=== PATIENT | male | born 1965 | race African-American/Black ===

== ENCOUNTER 2017-06-10 08:33 | Inpatient (IN) | payer OTHER ==
[~2017-06-10] VITALS: Ht 185.4 cm; Wt 96.2 kg
[2017-06-10] VITALS (13 sets, daily range): BP systolic 135–169; BP diastolic 89–113
[~2017-06-10 08:33] MED LIST: Dexamethasone 20mg/5ml IVP ONE; ceFAZolin sod 1 GM in NS 55 ML IVPB ONE
[2017-06-10] MEDS ORDERED: OXYCONTIN10 MG ORAL (09:23)
[2017-06-10] MEDS ORDERED: LR 1000ml 1,000 ML IVLG SCH (09:26)
[2017-06-10] MEDS ORDERED: Midazolam 2mg/2ml Inj IVP PRN (09:30)
[2017-06-10] MEDS ORDERED: Acetaminophen (Non formulary) 100 ML IV ONE (09:30)
[2017-06-10] MEDS ORDERED: Ketorolac 30mg Inj IV PRN ×3 (09:30→09:45)
[2017-06-10] MEDS ORDERED: Atropine Inj 1mg/10ml Syr IV PRN (09:30)
[2017-06-10] MEDS ORDERED: Metoclopramide 10mg/2ml Inj IVP PRN (09:30)
[2017-06-10] MEDS ORDERED: DiphenhydrAMINE 50mg/ml Inj IVP PRN (09:30)
[2017-06-10] MEDS ORDERED: Labetalol 5mg/ml 20ml vial IV PRN (09:30)
[2017-06-10] MEDS ORDERED: LORazepam Inj 2mg/ml 1ml IV PRN (09:30)
[2017-06-10] MEDS ORDERED: Norco 7.5mg/325mg tab ORAL PRN (09:30)
[2017-06-10] MEDS ORDERED: oxyCODONE HCL/Acetaminophen 5/325mg ORAL PRN (09:30)
[2017-06-10] MEDS ORDERED: Norco 5mg/325mg tab ORAL PRN (09:30)
[2017-06-10] MEDS ORDERED: fentaNYL 100 mcg/2 mL IV PRN (09:30)
[2017-06-10] MEDS ORDERED: OXYCODONE HCL20 M1 ORAL (09:31)
[2017-06-10] MEDS ORDERED: FUROSEMIDE40 MG ORAL (09:31)
[2017-06-10] MEDS ORDERED: LISINOPRIL30 MG ORAL (09:31)
--- NOTE | 2017-06-10 09:43 | Pre-Procedure Note/Attestation ---
Pre-Procedure Note/Attestation Complete Prior to Procedure Planned Procedure: not applicable Procedure Narrative: acdf c5-6 c6-7 pLATE c5-6-7 Indications for Procedure Pre-Operative Diagnosis: POST TRAUMA DISCOGENIC NECK PAIN C5-6 C6-7 Attestation I attest that I discussed the nature of the procedure; its benefits; risks and complications; and alternatives (and the risks and benefits of such alternatives ), prior to the procedure, with the patient (or the patient's legal ict sales representative). I attest that, if there was a reasonable possibility of needing a blood transfusion, the patient (or the patient's legal ict sales representative) was given the [place] Department [employer] standardized written summary, pursuant to the [place] Blood Safety Act ([place] Health and Safety Code # 1645, as amended). I attest that I re-evaluated the patient just prior to the surgery and that there has been no change in the patient's H&P, except as documented below: JOÃO CASH Jun 10, 2017 09:43
[2017-06-10] MEDS ORDERED: Glycopyrrolate 0.2mg/ml 1ml Vial ONE (10:00)
[2017-06-10] MEDS ORDERED: Lidocaine 1% Plain 30 ml INJ ONE (10:00)
[2017-06-10] MEDS ORDERED: fentaNYL 100 mcg/2 mL IV ONE (10:00)
[2017-06-10] MEDS ORDERED: Sterile Water Irrig 1000ml IRRIG ONE (10:00)
[2017-06-10] MEDS ORDERED: Propofol 1,000mg/ 100ml btl IV ONE (10:00)
[2017-06-10] MEDS ORDERED: Chloraseptic Spray 20mL Bottle ORAL PRN (10:00)
[2017-06-10] MEDS ORDERED: LR 1000ml ONE (10:00)
[2017-06-10] MEDS ORDERED: Lidocaine 1% MPF 10mg/ml 5ml ONE (10:00)
[2017-06-10] MEDS ORDERED: Neostigmine 1mg/ml 10ml Inj ONE (10:00)
[2017-06-10] MEDS ORDERED: Morphine Sulfate 4mg/ml Inj IM PRN (10:00)
[2017-06-10] MEDS ORDERED: NS Irrig 1000ml ONE (10:00)
[2017-06-10] MEDS ORDERED: Labetalol 5mg/ml 20ml vial IV ONE (10:00)
[2017-06-10] MEDS ORDERED: Zemuron 50mg/5ml Inj IV ONE (10:00)
[2017-06-10] MEDS ORDERED: Thrombin 5000 units TOPIC ONE (10:06)
[2017-06-10] MEDS ORDERED: Vancomycin 1gm inj IVPB ONE (10:07)
[2017-06-10] MEDS ORDERED: Bacitracin 50000 Units Vial ONE (10:07)
--- NOTE | 2017-06-10 10:09 | Anethesia Preoperative Eval ---
Anesthesia Pre-op PMH/ROS General Date of Evaluation: Jun 10, 2017 Time of Evaluation: 10:14 Anesthesiologist: Penelope ASA Score: ASA 3 Mallampati Score Class I : Soft palate, uvula, fauces, pillars visible Class II: Soft palate, uvula, fauces visible Class III: Soft palate, base of uvula visible Class IV: Only hard plate visible Mallampati Classification: Class II Surgeon: Jessee Diagnosis: Neck Pain Surgical Procedure: ACDF C5-6, C6-7 Anesthesia History: none Family History: no anesthesia problems Allergies: Coded Allergies: No Known Allergies (Unverified , 06/10/17) Medications: see eMAR Past Medical History Cardiovascular: Reports: HTN, other - HL Pulmonary: Reports: asthma PSxH Narrative: L/S SX 05, Bilateral Legs Ortho SX Anesthesia Pre-op Phys. Exam Physician Exam Last Vital Signs Date Time Temp Pulse Resp B/P (MAP) Pulse Ox O2 Delivery O2 Flow Rate FiO2 06/10/17 09:51 98.4 50 20 154/92 100 Room Air Constitutional: NAD Neurologic: CN 2-12 intact Cardiovascular: RRR Respiratory: CTA Gastrointestinal: S/NT/ND Airway Exam Mallampati Score: Class II MO: full ROM: limited Teeth: intact Anesthesia Pre-op A/P Risk Assessment & Plan Assessment: ASA 3 Plan: GA, BIS, GlideScope Status Change Before Surgery: No Pre-Antibiotics Dru Grams Ancef IV Given Within 1 Hr of Incision: Yes Time Given: 10:41 Kolton Negrete MD Jun 10, 2017 10:09
--- NOTE | 2017-06-10 10:13 | Immediate Post-Op Evaluation ---
Immediate Post-Op Evalulation Immediate Post-Op Evalulation Procedure: ACDF C5-6, C6-7 Date of Evaluation: Jun 10, 2017 Time of Evaluation: 13:32 IV Fluids: 1000 LR Blood Products: 0 Estimated Blood Loss: 35 Urinary Output: 0 Blood Pressure Systolic: 154 Blood Pressure Diastolic: 77 Pulse Rate: 58 Respiratory Rate: 16 O2 Sat by Pulse Oximetry: 100 Temperature (Fahrenheit): 97.2 Pain Score (1-10): 3 Nausea: No Vomiting: No Complications 0 Patient Status: awake, reacts, patent, extubated, none Hydration Status: adequate Dru Grams Ancef IV Given Within 1 Hr of Incision: Yes Time Given: 10:41 Kolton Negrete MD Jun 10, 2017 10:13
--- NOTE | 2017-06-10 13:27 | Brief Operative Note ---
Immediate Post Operative Note Operative Note Pre-op Diagnosis: POST TRAUMA DISCOGENIC NECK PAIN C5-6 C6-7 Procedure: Hemivertebrectomy C5,6,7 Correction deformity reconstruction titanium Osteopromotive material C5-6, C6-7 Fusion C5-6-7 Anterior internal palate fixation C5-6-7 Xray SSEP high power magnification dissection Post-op Diagnosis: same as pre-op Findings: consistent w/pre-op dx studies Surgeon: Jessee TRUJILLO Truck Chauffeur: J Luis VOGT Anesthesiologist: Penelope TRUJILLO Anesthesia: general Specimen: none Complications: none Condition: stable Fluids: anesthesia Estimated Blood Loss: minimal Implant(s) used?: Yes JOÃO CASH Jun 10, 2017 13:27
[2017-06-10] MEDS: Hydromorphone 0.5mg/0.5ml inj IVP PRN ×2 (13:43→14:02)
--- NOTE | 2017-06-10 15:05 | Diagnostic Imaging Report ---
Indication: Neck pain, intraoperative Technique: Intraoperative images Comparison: none Findings: Initial image demonstrates a surgical tool projected at the anterior aspect of the C5-6 disc. Subsequent images document anterior fusion with placement of disc spacers at C5-C7. Impression: Intraoperative imaging, as described
[2017-06-10] MEDS ORDERED: Albuterol/Ipratropium 3ml neb HHN PRN (18:00)
[2017-06-10] MEDS: D5 1/2NS 1,000 ML IV SCH (18:43)
[2017-06-10] MEDS ORDERED: ceFAZolin sod 1 GM in D5W 55 ML IV SCH (18:45)
[2017-06-10] MEDS: Albuterol/Ipratropium 3ml neb HHN SCH (19:00)
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
--- NOTE | 2017-06-10 21:30 | Operative Note - Dictated ---
DATE OF OPERATION: 06/10/2017 PRIMARY SURGEON: Javed Hooks, Ph.D., M.D. CELLARS SUPERVISOR: SIN Rand. ANESTHESIA: General with intubation. ANESTHESIOLOGIST: Kolton Negrete M.D. ESTIMATED BLOOD LOSS: Minimal. ADMITTING/PREOPERATIVE DIAGNOSIS: Posttraumatic discogenic neck pain. POSTOPERATIVE DIAGNOSIS: Posttraumatic discogenic neck pain. OPERATIVE PROCEDURES: 1. Ruperto vertebrectomy C5, C6, and C7. 2. Interbody reconstruction and fusion, correction of deformity titanium with placement of osteopromotive material for fusion at C5-C6 and C6-C7. 3. Anterior internal plate fixation at C5-C6-C7. 4. Intraoperative x-rays interpreted by surgeon. 5. SSEP monitoring. 6. High-powered magnification dissection. COMPLICATIONS: None. POSTOPERATIVE CONDITION: Good/stable. DESCRIPTION OF PROCEDURE: The patient was brought to the operative room and in the supine position, general anesthesia with intubation was induced. Intravenous antibiotics and intravenous Decadron were administered 30 minutes prior to incision time. After appropriate positioning, this cross-table imaging was obtained with non-penetrating markers in place to demonstrate the correct level for incision placement. Markers were placed on the contralateral aspect of the neck where an incision was intended. Position for the incision was marked sterilely with the pen transverse in the skin fold. Marker as noted above was removed. Anterior cervical spine was sterilely prepped and draped free in the usual sterile fashion. A transverse incision was sharply placed through dermis and epidermis. Electrocautery dissection was carried through the subcutaneous tissue to the level of the platysmas muscle was identified, isolated, and transected in line with the incision. Blunt dissection was carried through the deep cervical fascia and pretracheal fascia to the midline between the right and left longus colli muscles medial to the left sternocleidomastoid muscle. A spinal needle was bent at 90-degree angle to avoid penetration greater than 3 mm in the disc space and was placed into the disc space. A cross-table image was obtained under sterile conditions demonstrating the correct level for further dissection. Level was marked. Needle removed. Longus colli muscles are elevated appropriately and retractor placed. C5-C6. A large anterior osteophyte approximately 1 cm in height was resected under high-power magnification with Mid[place] Elbert bur dissection. Ruperto vertebrectomy inferior C5 and superior C6 to the posterior longitudinal ligament was undertaken with resection of the posterior osteophyte. Interpositional grafting with lordotic cage with correction deformity titanium containing osteopromotive material tamped into position and fit excellent. Fluoroscopic guidance confirmation. Attention was turned with placement of retractors at C6-C7. A large anterior osteophyte was resected under high-power magnification. Ruperto vertebrectomy inferior C6 superior C7 followed with interpositional grafting with a 6 mm lordotic titanium implant containing osteopromotive material for fusion. Excellent positioning obtained. Cross-table fluoroscopic imaging demonstrating excellent alignment and position. SSEP monitoring stable at all times. A 10 pounds of traction on the neck/head was removed. Anterior internal plate fixation of the appropriate length in a compressive fashion was placed with bilateral screws at C5, C6, and C7 locked into position. Purchase excellent. Imaging printed. Wound irrigated with antibiotic-containing saline. Exploration revealed no obvious excoriation or laceration of vital structures. HemoSeal applied followed with 500 mg of vancomycin powder. Reapproximation with Vicryl suture material of the platysmas muscle. Running subcuticular suture followed with surgical strips and sterile bandage maintained in place with tape. The patient was awakened, extubated in the operating room, and transported to postop recovery in good and stable condition. Javed Hooks M.D. DR: IVY JOB#: [id number] CC:
[2017-06-10] MEDS: Dronabinol 2.5mg Cap ORAL SCH (22:02)
[2017-06-11] VITALS: BP 174/96
[2017-06-11] MEDS: Albuterol/Ipratropium 3ml neb HHN SCH ×3 (01:45→13:27)
[2017-06-11] MEDS: D5 1/2NS 1,000 ML IV SCH ×2 (02:00→10:00)
[2017-06-11] MEDS: ceFAZolin 1gm/50ml Premix 50 ML IV SCH ×2 (02:31→10:28)
[2017-06-11 04:00] VITALS: BP 131/79
[2017-06-11] MEDS: oxyCODONE 5mg IR tab ORAL PRN ×2 (04:53→13:37)
[2017-06-11] MEDS: Dronabinol 2.5mg Cap ORAL SCH (06:11)
[2017-06-11 08:32] VITALS: BP 143/86
[2017-06-11] MEDS ORDERED: Dronabinol 2.5mg Cap ORAL ONE (09:30)
[2017-06-11 12:14] VITALS: BP 142/76
--- NOTE | 2017-06-11 12:14 | 48 Hour Post Anesthesia Eval ---
Post Anesthesia Evaluation Procedure: ACDF C5-6, C6-7 Date of Evaluation: Jun 11, 2017 Time of Evaluation: 12:13 Blood Pressure Systolic: 142 0: 76 Pulse Rate: 78 Respiratory Rate: 20 Temperature (Fahrenheit): 97.8 O2 Sat by Pulse Oximetry: 98 Airway: patent Nausea: No Vomiting: No Pain Intensity: 2 Hydration Status: adequate Cardiopulmonary Status: stable Mental Status/LOC: patient returned to baseline Follow-up Care/Observations: n/a Post-Anesthesia Complications: none Follow-up care needed: ready to discharge KAT PETERS M.D. Jun 11, 2017 12:14
[2017-06-11] MEDS ORDERED: Tubing IV Secondary IV ONE (13:59)
--- NOTE | 2017-06-11 16:02 | Progress Note ---
DATE: 06/11/2017 ACUTE PAIN MANAGEMENT PHYSICIAN PROGRESS NOTE MEDICATIONS: Medication administration record reviewed. Medications include Protonix, IV fluids, albuterol, antibiotics, Marinol. P.r.n. medications include Fioricet, Benadryl, Soma, Chloraseptic spray, Catapres, oxycodone, Mylanta, morphine, albuterol. LABORATORY STUDIES: No interval laboratory studies. VITAL SIGNS: Afebrile, pulse 82, respirations 18, blood pressure 143/86, and oxygen saturation 99% on room air. I spent over 60 minutes in consultation today. I discussed the case with the surgeon, Dr. Javed Hooks. I saw the patient with the nurse, FABRICIO Frias. At the bedside, the patient's female methods study analyst remains providing good social support. The patient's neck dressing is clean and dry and the patient does have limited range of motion of the neck. The patient is swallowing, breathing, and phonating within normal limits after his neck instrumentation surgery yesterday. The patient is moving all extremities x4. The patient has tolerated advancing diet including cereal this morning. Yesterday, the patient had too many symptoms of pain and nausea to allow him to go home yesterday. He stayed overnight and with continued supportive care, the patient's clinical condition has improved significantly. The patient is breathing comfortably on room air. Denies any shortness of breath or chest pain. The patient has a good supply of oxycodone already at home and did tolerate oxycodone here in the hospital. After initial bouts of nausea, the patient's nausea symptoms have resolved and his appetite has normalized. The patient is voiding urine well. At this time, I see no contraindication to discharge trial home. The patient will follow up with Dr. Hooks in the outpatient surgical clinic for followup and narcotic adjustments. Jax Walton JOB#: [id number] CC:
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
== END 2017-06-11 14:00 | disposition home or self-care (01) | DRG 473 ==
LOC: SDSOVERFLO 08:33 → 3E 17:43
PROC: 0RG20A0 Fusion of 2 or more Cervical Vertebral Joints with Interbody Fusion Device, Anterior Approach, Anterior Column, Open Approach (ICD-10-PCS; principal; 2017-06-10 11:00)
DX: M50.122 Cervical disc disorder at C5-C6 level with radiculopathy (principal); I10 Essential (primary) hypertension; V49.40XS Driver injured in collision with unspecified motor vehicles in traffic accident, sequela; E78.5 Hyperlipidemia, unspecified; R00.1 Bradycardia, unspecified; M54.16 Radiculopathy, lumbar region; J45.909 Unspecified asthma, uncomplicated
CPT/HCPCS: 36415; 72040; 76001; 86850; 86900; 86901; 87081; 94003; 94150; 94640; 94664; J2405; J2710; J7620